=== PATIENT | female | born 1935 | race Caucasian/White ===

== ENCOUNTER 2017-11-13 21:47 | Emergency (ER) | payer MEDICARE ==
[2014-11-15 09:19] VITALS: Ht 170.2 cm; Wt 78.9 kg
[~2017-11-13] VITALS: Ht 170.2 cm; Wt 78.9 kg
[~2017-11-13 21:47] MED LIST: ADV250/50 INH; ALBU1.257 IH; ALBU8.5H IH; AMLO-1 PO; AMLO-96 PO; AMLO2.5T74 PO; ASP325 PO; AZIT-1 PO; BIPAP; CA C1TAB85 PO; CETI10CA8 PO; CHOL200022 PO; DAPS25TA8 PO; DUL100/5PT INH; DULERAPT INH; ESTR0.62 PO; FLU IM; FLU45SYR17 IM; FLUC100T39 PO; IPRA15SP7 NS; LISI-349 PO; LISI20TA29 PO; LOR5/325 PO; METH4TAB66 PO; MOM PO; MONT10TA PO; MOX400 PO; OXYGENHOME INH; PNEU0.5D3 IM; PROAIRPT IH; Prednisone PO; VIT-9 PO
[2017-11-13] MEDS ORDERED: ANTI1CAP PO (22:02)
--- NOTE | 2017-11-13 22:07 | ER Report ---
History and Physical Time Seen By MD: 22:06 Hx. of Stated Complaint: Cough and shortness of breath and confusion HPI/ROS CHIEF COMPLAINT: cough, short of breath HISTORY OF PRESENT ILLNESS: This is an 82 year old female. She has been sick for about 2-3 days. Cough. Fevers. Feeling more short of breath tonight. Having some mild pain from coughing. Body aches as well. No nausea or vomiting. Normal bowels. No dysuria or problems with urination. Allergies: Coded Allergies: diazepam (Verified Allergy, Severe, decreased mental status even with low dose, 11/13/17) tree nut (Unverified Allergy, Severe, throat swelling, 11/13/17) Walnuts and Pecans hydrochlorothiazide (Unverified Adverse Reaction, Mild, hypokalemia, ) Home Meds Active Scripts Oseltamivir Phosphate (TAMIFLU) 75 Mg Cap, 75 MG PO BID for 5 Days, #10 CAP 0 Refills Prov:GUSTAVO SANFORD MD 11/13/17 Ipratropium [place] 0.06% Ns (IPRATROPIUM BROMIDE 0.06% NS) 15 Ml Quinn, 2 SPRAYS NS BID for 30 Days, #1 BOT 11 Refills Prov:WIL BECKHAM JR, MD 07/18/17 Lisinopril (LISINOPRIL) 20 Mg Tablet, 1 TAB PO BID, #60 TAB 11 Refills Prov:KOSTA JONES MD 05/08/17 Albuterol Sulfate 90 Mcg/Act (PROAIR HFA 90 MCG/ACT) 8.5 Gm Hfa.aer.ad, 2 PUFF IH Q4H Y for WHEEZING, #1 INHALER 11 Refills Prov:KOSTA JONES MD 11/10/14 Reported Medications Antiox#10/Om3/Dha/Epa/Lut/Zeax (I-CAPS WITH LUTEIN-OMEGA 3 SFG) 1 Each Capsule, 1 EACH PO BID, CAPSULE 11/13/17 Oxygen (OXYGEN) Inha, 2 L INH PRN Y for exertion, L 07/05/16 Bipap Home (BIPAP HOME) Inha, HS 06/01/16 Montelukast Sodium (SINGULAIR) 10 Mg Tablet, 1 TAB PO QDAY, TAB 12/18/15 Mometasone/Formoterol (DULERA 200 MCG/5 MCG INHALER) 13 Gm Inh, 2 PUFF INH BID, INH 12/18/15 Cholecalciferol (Vitamin D3) (VITAMIN D) 2,000 Unit Tablet, 1 TAB PO QDAY, CAPSULE 09/08/15 Cetirizine Hcl (ZYRTEC) 10 Mg Capsule, 1 CAP PO QDAY, CAPSULE 11/14/14 Discontinued Reported Medications Vit A/Vit C/Vit E/Zinc/Copper (PRESERVISION AREDS TABLET) 1 Each Tablet, 1 TAB PO BID 04/10/17 Discontinued Scripts Amlodipine Besylate (AMLODIPINE BESYLATE) 2.5 Mg Tablet, 1 TAB PO QDAY, #30 TAB 1 Refill Prov:KOSTA JONES MD 05/08/17 Estrogens, Conjugated 0.625 Mg Tab (PREMARIN 0.625 MG TAB) 0.625 Mg Tablet, 1 TAB PO Q3D, #30 TAB 12 Refills Prov:KOSTA JONES MD 04/10/17 Reviewed Nurses Notes: Yes Hx Smoking: No Smoking Status: Never Smoker Exposure to Second Hand Smoke?: Yes (father heavy smoker) Hx Substance Use Disorder: No Hx Alcohol Use: Yes Constitutional Vital Sign - Last 24 Hours 11/13/17 11/13/17 11/13/17 11/13/17 21:54 22:00 22:15 22:30 Temp 100.6 Pulse 87 86 83 84 Resp 22 B/P (MAP) 141/78 125/70 (88) 116/70 (85) Pulse Ox 93 90 90 94 O2 Delivery Nasal Cannula 11/13/17 11/13/17 11/13/17 11/13/17 22:45 23:00 23:15 23:16 Pulse 80 78 80 80 B/P (MAP) 131/69 (89) Pulse Ox 93 97 87 86 O2 Delivery Room Air 11/13/17 23:30 Pulse 85 Pulse Ox 92 Physical Exam General Appearance: The patient is alert. No acute distress. Eyes: Pupils are equal, round. No pallor, injection or icterus. ENT: Mucous membranes are moist. Normal oral mucosa. Posterior oropharynx with some redness and post-nasal drainage. Normal tympanic membranes and canals. Neck: Supple and non tender. Respiratory: Lungs are clear to auscultation. Cardiovascular: Regular rate and rhythm. No murmurs, gallops or rubs. Normal capillary refill Gastrointestinal: Abdomen is soft and non tender. Nondistended. Normal active bowel sounds. Neurological: Alert and oriented x3. No focal neurologic deficits. Skin: Warm and dry. No rashes. DIFFERENTIAL DIAGNOSIS: After history and physical exam, differential diagnosis was considered for shortness of breath including but not limited to pulmonary infectious process, COPD, asthma, pulmonary embolus and congestive heart failure. Medical Decision Making Data Points Result Diagram: 11/13/17220011/13/172200 Laboratory Hematology Test 11/13/17 22:01 11/13/17 22:25 Red Blood Count 5.42 M/uL (4.17-5.56) Mean Corpuscular Volume 88.7 fL (80.0-96.0) Mean Corpuscular Hemoglobin 30.4 pg (26.0-33.0) Mean Corpuscular Hemoglobin Concent 34.3 g/dL (32.0-36.0) Red Cell Distribution Width 13.3 % (11.5-14.5) Mean Platelet Volume 7.8 fL (7.2-11.1) Neutrophils (%) (Auto) 63.0 % (39.4-72.5) Lymphocytes (%) (Auto) 23.8 % (17.6-49.6) Monocytes (%) (Auto) 12.2 % (4.1-12.4) Eosinophils (%) (Auto) 0.1 % (0.4-6.7) Basophils (%) (Auto) 0.9 % (0.3-1.4) Nucleated RBC Relative Count (auto) 0.1 /100WBC Neutrophils # (Auto) 4.4 K/uL (2.0-7.4) Lymphocytes # (Auto) 1.7 K/uL (1.3-3.6) Monocytes # (Auto) 0.9 K/uL (0.3-1.0) Eosinophils # (Auto) 0.0 K/uL (0.0-0.5) Basophils # (Auto) 0.1 K/uL (0.0-0.1) Nucleated RBC Absolute Count (auto) 0.01 K/uL Sodium Level 126 mmol/L (137-145) Potassium Level 4.0 mmol/L (3.5-5.0) Chloride Level 92 mmol/L (98-107) Carbon Dioxide Level 25 mmol/L (22-31) Blood Urea Nitrogen 16 mg/dl (7-18) Creatinine 0.80 mg/dl (0.52-1.04) Glomerular Filtration Rate Calc > 60.0 Random Glucose 99 mg/dl (75-110) Lactate 1.1 mmol/L (0.7-2.1) Calcium Level 8.9 mg/dl (8.4-10.2) Total Bilirubin 0.7 mg/dl (0.2-1.3) Aspartate Amino Transf (AST/SGOT) 27 U/L (0-35) Alanine Aminotransferase (ALT/SGPT) 35 U/L (0-56) Alkaline Phosphatase 90 U/L (0-126) Total Protein 7.2 gm/dl (6.3-8.2) Albumin 3.8 g/dl (3.5-5.0) Influenza Type A Antigen Negative (NEGATIVE) Influenza Type B Antigen Positive (NEGATIVE) Chemistry Test 11/13/17 22:01 11/13/17 22:25 White Blood Count 7.0 k/uL (4.5-11.0) Red Blood Count 5.42 M/uL (4.17-5.56) Hemoglobin 16.5 g/dL (12.0-16.0) Hematocrit 48.1 % (34.0-47.0) Mean Corpuscular Volume 88.7 fL (80.0-96.0) Mean Corpuscular Hemoglobin 30.4 pg (26.0-33.0) Mean Corpuscular Hemoglobin Concent 34.3 g/dL (32.0-36.0) Red Cell Distribution Width 13.3 % (11.5-14.5) Platelet Count 251 K/uL (150-450) Mean Platelet Volume 7.8 fL (7.2-11.1) Neutrophils (%) (Auto) 63.0 % (39.4-72.5) Lymphocytes (%) (Auto) 23.8 % (17.6-49.6) Monocytes (%) (Auto) 12.2 % (4.1-12.4) Eosinophils (%) (Auto) 0.1 % (0.4-6.7) Basophils (%) (Auto) 0.9 % (0.3-1.4) Nucleated RBC Relative Count (auto) 0.1 /100WBC Neutrophils # (Auto) 4.4 K/uL (2.0-7.4) Lymphocytes # (Auto) 1.7 K/uL (1.3-3.6) Monocytes # (Auto) 0.9 K/uL (0.3-1.0) Eosinophils # (Auto) 0.0 K/uL (0.0-0.5) Basophils # (Auto) 0.1 K/uL (0.0-0.1) Nucleated RBC Absolute Count (auto) 0.01 K/uL Glomerular Filtration Rate Calc > 60.0 Lactate 1.1 mmol/L (0.7-2.1) Calcium Level 8.9 mg/dl (8.4-10.2) Total Bilirubin 0.7 mg/dl (0.2-1.3) Aspartate Amino Transf (AST/SGOT) 27 U/L (0-35) Alanine Aminotransferase (ALT/SGPT) 35 U/L (0-56) Alkaline Phosphatase 90 U/L (0-126) Total Protein 7.2 gm/dl (6.3-8.2) Albumin 3.8 g/dl (3.5-5.0) Influenza Type A Antigen Negative (NEGATIVE) Influenza Type B Antigen Positive (NEGATIVE) EKG/Imaging Imaging CHEST SINGLE AP Additional pertinent History: Hypoxia SOB. Cough x3 days COMPARISON STUDIES: none FINDINGS: Support lines and catheters: Oxygen tubing Lungs and Pleura: Minimal bibasilar atelectatic/scarring changes in the inferior lateral aspects of both lung poon symmetrically. No consolidations. No effusions. No parenchymal mass lesions. Heart and vasculature: Negative. Zuleyma and Mediastinum: Negative. Bones and Chest wall: Negative. Upper Abdomen: Negative. IMPRESSION: 1. Minimal bibasilar atelectasis/scarring. No acute cardiopulmonary disease. No pneumonic infiltrate identified. Report Dictated By: Macario Plasencia MD at 11/13/2017 10:45 PM ED Course/Re-evaluation Clinical Indication for ER IV: IV Access ED Course Room air saturation 86%. Improved with some oxygen by nasal canula at 2 liters. Influenza B positive. CBC, CMP as noted, and chest x-ray negative for consolidation/infiltrate. Will send home with oxygen. Start Tamiflu Decision to Disposition Date: Nov 13, 2017 Decision to Disposition Time: 23:13 Depart Departure Latest Vital Signs Vital Signs Date Time Temp Pulse Resp B/P (MAP) Pulse Ox O2 Delivery O2 Flow Rate FiO2 11/13/17 23:30 85 92 11/13/17 23:16 Room Air 11/13/17 23:00 131/69 (89) 11/13/17 21:54 100.6 22 Impression: Primary Impression: Influenza B Additional Impression: Hypoxia Condition: Improved Disposition: HOME OR SELF-CARE Referrals: KOSTA JONES MD (PCP) New Scripts Oseltamivir Phosphate (TAMIFLU) 75 Mg Cap 75 MG PO BID for 5 Days, #10 CAP 0 Refills Prov: GUSTAVO SANFORD MD 11/13/17 Departure Forms: Home Oxygen, Nebulizer RX Durable Medical Equipment- Oxygen: Oxygen Concentrator, Portable Oxygen Gas Reason for Use/Diagnosis: Influenza B, Hypoxia Start Date of the Order: Nov 13, 2017 Dosage or Concentration (if applicable) - LPM: 2 Route of Administration (if applicable): Nasal Cannula Frequency of Use: Continuous Duration Home O2 Required: 3 Duration Units: Weeks Room Air Oxygen Saturation: 86 ER Prescribing Physician's Name: Gustavo Sanford NPI Numbers for Local ER MDs: Claribel [id number] Patient Instructions: Hypoxia (ED), Influenza (ED) Additional Instructions: Rest and increase fluid intake. You can take over the counter medications to help with symptoms. Tylenol or Ibuprofen to help with aches/pains and fever. Over the counter cough medicines. Tamiflu 75mg twice a day for 5 days. Continue using oxygen 2 liters nasal cannula while you are sick Problem Qualifiers GUSTAVO SANFORD MD Nov 13, 2017 22:07
[2017-11-13 22:47] LABS: PLATELET COUNT, AUTOMATED 251 K/uL (150-450)
--- NOTE | 2017-11-13 22:50 | RADIOLOGY IMAGING REPORT ---
FACILITY: [facility] PATIENT NAME: Hollie Martines : 1935 MR: [id number] V: [id number] EXAM DATE: ORDERING PHYSICIAN: ANNETTE BRICEÑO TECHNOLOGIST: Location: [facility] Patient: Hollie Martines : 1935 Visit/Account:[id number] Date of Sevice: 11/13/2017 CHEST SINGLE AP Additional pertinent History: Hypoxia SOB. Cough x3 days COMPARISON STUDIES: none FINDINGS: Support lines and catheters: Oxygen tubing Lungs and Pleura: Minimal bibasilar atelectatic/scarring changes in the inferior lateral aspects of both lung poon symmetrically. No consolidations. No effusions. No parenchymal mass lesions. Heart and vasculature: Negative. Zuleyma and Mediastinum: Negative. Bones and Chest wall: Negative. Upper Abdomen: Negative. IMPRESSION: 1. Minimal bibasilar atelectasis/scarring. No acute cardiopulmonary disease. No pneumonic infiltrate identified. Report Dictated By: Macario Plasencia MD at 11/13/2017 10:45 PM Report E-Signed By: Macario Plasencia MD at 11/13/2017 10:46 PM WSN:[id number]
[2017-11-13 23:00] VITALS: BP 131/69
[2017-11-13] MEDS ORDERED: OSE75 PO (23:48)
[2017-11-13] MEDS ORDERED: OSELTAMIVIR PHOS 75 MG CAP PO ONE (23:55)
== END 2017-11-13 23:59 | disposition home or self-care (01) ==
LOC: ER 22:05
DX: J11.1 Influenza due to unidentified influenza virus with other respiratory manifestations (principal); R09.02 Hypoxemia
CPT/HCPCS: 36415; 71045; 83605; 85025; 87040; 87502; 99284; A9270; 82040; 82247; 82310; 82374; 82435; 82565; 82947; 84075; 84132; 84155; 84295; 84450; 84460; 84520

== ENCOUNTER → 2018-07-12 | Outpatient (CLI) | payer MEDICARE ==
[2014-11-15 09:19] VITALS: BMI 27.2
[~2018-07-12] MED LIST changes: +ANTI1CAP PO; +OSE75 PO
[2018-07-12 15:46] LABS: PLATELET COUNT, AUTOMATED 277 K/uL (150-450)
--- NOTE | 2018-07-12 16:32 | RADIOLOGY IMAGING REPORT ---
[place] [facility] [place]IENT NAME: Hollie Martines : 1935 MR: [id number] V: [id number] EXAM DATE: ORDERING PHYSICIAN: RUSS ALTMAN TECHNOLOGIST: Location: [facility] Patient: Hollie Martines : 1935 Visit/Account:[id number] Date of Sevice: 07/12/2018 2 VIEWS CHEST INDICATION: Malaise for one day. History of asthma and sleep apnea. COMPARISON: 11/13/2017. FINDINGS: Cardiomediastinal silhouette and pulmonary vessels within normal limits. There is no focal infiltrate or lobar consolidation. There is no pneumothorax or pleural effusion. Linear scarring seen in the left lower lobe. Stable tiny nodule lateral aspect left midlung. No other discrete nodule. Upper abdomen is unremarkable. No acute bony abnormality. Small calcific density along the medial asp ect of the right humeral head may represent a loose body in the joint or bursa. IMPRESSION: 1. No acute cardiopulmonary process. Report Dictated By: Patrick Blackmon at 07/12/2018 4:25 PM Report E-Signed By: Patrick Blackmon at 07/12/2018 4:28 PM WSN:[id number]
--- NOTE | 2018-07-12 17:41 | EKG ---
FACILITY: [facility] PATIENT NAME: MARYLU BAKER : [id number] MR: [id number] V: [id number] EXAM DATE: ORDERING PHYSICIAN: RUSS ALTMAN TECHNOLOGIST: FELICE Test Reason : MALAYSE Blood Pressure : / mmHG Vent. 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 rate has decreased BY 36 BPM Anterior infarct is now present QT has shortened Referred By: AGAPITO Confirmed By:
== END ==
LOC: LAB 15:09
PROVIDERS: ATTEND Nurse Practitioner Primary Care
DX: R53.81 Other malaise (principal)
CPT/HCPCS: 36415; 71046; 81001; 82040; 82247; 82310; 82374; 82435; 82565; 82947; 84075; 84132; 84155; 84295; 84450; 84460; 84520; 85025

== ENCOUNTER → 2018-07-16 | Outpatient (CLI) | payer MEDICARE ==
[2014-11-15 09:19] VITALS: BMI 27.2
[~2018-07-16] MED LIST changes: +AMLO-111 PO; -AMLO-96 PO; -AMLO2.5T74 PO; +AMLO2.5T76 PO; +CHOL200018 PO; -CHOL200022 PO
--- NOTE | 2018-07-20 06:47 | RT HOLTER TEST ---
FACILITY: [facility] - [place] PATIENT NAME: MARYLU BAKER : [id number] MR: [id number] V: [id number] EXAM DATE: ORDERING PHYSICIAN: KOSTA JONES TECHNOLOGIST: MYAH Hook-up date: 2018-07-16 15:35:00 Duration: 47:36:00 Test Indications: BRADYCARDIA Medications: [id number] QRS complexes 55 Ventricular ectopics which represent <1 % of total QRS comp. 94764 Supraventricular ectopics which represent 25 % of total QRS comp. * Paced QRS complexes which represent % of total QRS comp. VENTRICULAR ECTOPY 49 Isolated 0 Bigeminal Cycles 3 Couplets 0 Runs 0 Beats in Runs * Beats LONGEST at * BPM at :: -- * Beats FASTEST at * BPM at :: -- SUPRAVENTRICULAR ECTOPY 80 Isolated 57 Couplets 189 Runs [id number] Beats in Runs 1 Beats LONGEST at 58 BPM at 04:29:57 2018-07-18 3 Beats FASTEST at 90 BPM at 23:24:30 2018-07-17 HEART RATES 30 MIN at 06:35:53 2018-07-17 49 AVG 92 MAX at 23:35:13 2018-07-17 LONGEST RR 1.272 secs at 03:47:48 2018-07-17 S-T LEVELS Channel 1 -12.800 mm MIN at 15:35:00 2018-07-16 -12.800 mm MAX at 15:35:00 2018-07-16 Channel 2 -12.800 mm MIN at 15:35:00 2018-07-16 -12.800 mm MAX at 15:35:00 2018-07-16 Channel 3 -12.800 mm MIN at 15:35:00 2018-07-16 -12.800 mm MAX at 15:35:00 2018-07-16 The patient's maximum heart rate was sinus rhythm with 1st degree AV block at 30 beats per minute (BP M). Minimum heart rate was second degree heart block at 30 BPM. There were short periods of what appeared to be complete heart block as well. There were 49 PVCs with 3 couplets. Confirmed by RENETTA JAUREGUI ([id number]) on 07/20/2018 6:47:33 AM Referred By: Overread By: RENETTA JAUREGUI
== END ==
LOC: RESP 14:51
PROVIDERS: ATTEND Internal Medicine
DX: R00.1 Bradycardia, unspecified (principal)
CPT/HCPCS: 93225; 93226

== ENCOUNTER → 2019-02-25 | Outpatient (REF) | payer MEDICARE ==
[2014-11-15 09:19] VITALS: BMI 27.2
[~2019-02-25] MED LIST changes: -AMLO-111 PO; +AMLO-125 PO; -AMLO2.5T76 PO; +AMLO2.5T78 PO
[2019-02-25 14:10] LABS: PLATELET COUNT, AUTOMATED 344 K/uL (150-450)
== END ==
PROVIDERS: ATTEND Nurse Practitioner Family
DX: R05 Cough (principal)
CPT/HCPCS: 82040; 82247; 82310; 82374; 82435; 82565; 82947; 84075; 84132; 84155; 84295; 84450; 84460; 84484; 84520; 85025